=== PATIENT | female | born 1970 | race Hispanic/Latino ===

== ENCOUNTER 2021-06-20 10:59 | Inpatient (IN) | payer MEDICAID, SELFPAY ==
[2021-06-20] MEDS ORDERED: Dexamethasone 10 MG/ML VIAL ONE (12:05)
[2021-06-20] MEDS ORDERED: Albuterol Sulfate 2.5 mg/3 ml Neb ONE (13:29)
[2021-06-20] MEDS ORDERED: methylPREDNISolone Sod Succ/PF 125 MG/2 ML VIAL ONE (14:56)
[2021-06-20 15:38] LABS: SARS-CoV-2 NAA Rapid Test Not Detected (NotDetected)
[2021-06-20 15:39] LABS: Hemoglobin 16.1 g/dL (12.0-15.5); Mean Corpuscular HGB CONC 33.1 g/dL (32.0-36.0); Mean Corpuscular Hemoglobin 31.3 pg (27.0-33.0); Mean Corpuscular Volume 94.6 fl (81.6-98.3); RBC Distribution Width 12.6 % (11.5-14.5); Red Blood Cell (RBC) Count 5.15 10x6/uL (3.90-5.03); White Blood Cell (WBC) Count 7.7 10x3/uL (3.5-10.5)
[2021-06-20 15:46] LABS: ALT (SGPT) 39 U/L (8-55); AST (SGOT) 23 U/L (5-34); Albumin 4.1 g/dL (3.5-5.0); Alkaline Phosphatase 93 U/L (40-110); Anion Gap 15 mmol/L (10-20); BUN (Urea Nitrogen) 7 mg/dL (9.8-20.1); Bilirubin, Total 0.9 mg/dL (0.2-1.2); Calc. Creatinine Clearance 0 mL/min (70-130); Calcium 9.3 mg/dL (7.8-10.44); Carbon Dioxide 25 mmol/L (22-29); Chloride 102 mmol/L (98-107); Globulin 3.7 g/dL (2.4-3.5); Glucose 217 mg/dL (70-105); Potassium 3.7 mmol/L (3.5-5.1); Protein, Total 7.8 g/dL (6.0-8.3); Sodium 138 mmol/L (136-145)
[2021-06-20 15:50] LABS: #Basophils 0.1 10x3/uL (0.0-0.2); #Eosinphils 0.1 10x3/uL (0.0-0.5); #Monocytes 0.1 10x3/uL (0.0-1.1); #Neutrophils 6.4 10x3/uL (1.5-8.4); %Basophils 0.8 % (0.0-2.0); %Eosinophils 1.3 % (0.0-6.0); %Lymphocytes 12.9 % (18.0-47.0); %Monocytes 1.8 % (0.0-10.0); %Neutrophils 82.8 % (40.0-75.0); Mean Platelet Volume 11.4 fl (7.4-10.4); Platelet Count 128 10x3/uL (150-450)
[2021-06-20] MEDS ORDERED: Magnesium 2 GM/50 ML BAG (IN WATER) ONE (16:05)
[2021-06-20] MEDS ORDERED: Acetaminophen 325 MG TAB PO PRN (17:12)
[2021-06-20] MEDS ORDERED: Ondansetron PF 4 MG/2 ML Vial IVP PRN (17:12)
[2021-06-20 20:40] VITALS: BMI 42.6
[2021-06-20] MEDS: guaiFENesin ER 600 MG TAB PO SCH (22:14)
[2021-06-20] MEDS: Montelukast Sodium 10 mg Tablet PO SCH (22:14)
[2021-06-21] MEDS: methylPREDNISolone Sod Succ 40 MG VIAL IVP SCH ×5 (01:32→18:15)
[2021-06-21 05:16] LABS: #Monocytes 0.2 10x3/uL (0.0-1.1); #Neutrophils 10.5 10x3/uL (1.5-8.4); %Basophils 0.2 % (0.0-2.0); %Lymphocytes 7.7 % (18.0-47.0); %Monocytes 1.5 % (0.0-10.0); Hemoglobin 15.3 g/dL (12.0-15.5); Mean Corpuscular HGB CONC 33.3 g/dL (32.0-36.0); Mean Corpuscular Hemoglobin 30.9 pg (27.0-33.0); Mean Corpuscular Volume 92.9 fl (81.6-98.3); Mean Platelet Volume 11.5 fl (7.4-10.4); Platelet Count 149 10x3/uL (150-450); Red Blood Cell (RBC) Count 4.95 10x6/uL (3.90-5.03); White Blood Cell (WBC) Count 11.6 10x3/uL (3.5-10.5)
[2021-06-21 05:32] LABS: Anion Gap 16 mmol/L (10-20); BUN (Urea Nitrogen) 10 mg/dL (9.8-20.1); Calc. Creatinine Clearance 147 mL/min (70-130); Calcium 9.3 mg/dL (7.8-10.44); Carbon Dioxide 21 mmol/L (22-29); Chloride 106 mmol/L (98-107); Glucose 333 mg/dL (70-105); Potassium 4.1 mmol/L (3.5-5.1); Sodium 139 mmol/L (136-145)
[2021-06-21] MEDS ORDERED: Dextrose 50% Abboject 50 ML SYRINGE SLOW IVP PRN (07:36)
[2021-06-21] MEDS ORDERED: Dextrose 5% in Water 1,000 ML IV PRN (07:36)
[2021-06-21] MEDS: Guaifenesin DM 100-10/5 ML UDCUP PO PRN (09:26)
[2021-06-21] MEDS: guaiFENesin ER 600 MG TAB PO SCH ×2 (09:26→22:33)
[2021-06-21] MEDS: Enoxaparin Sodium 30 MG/0.3 ML SYRINGE SC SCH (09:26)
[2021-06-21] MEDS: Pantoprazole 40 MG VIAL IVP SCH (09:26)
[2021-06-21] MEDS: HumaLOG 300 UNITS/3 ML VIAL SC PRN ×3 (11:35→22:32)
[2021-06-21 12:05] LABS: Hemoglobin A1c 8.3 % (4.0-6.0)
[2021-06-21] MEDS: Montelukast Sodium 10 mg Tablet PO SCH (22:33)
[2021-06-22] MEDS: methylPREDNISolone Sod Succ 40 MG VIAL IVP SCH ×4 (01:19→21:06)
[2021-06-22] MEDS: HumaLOG 300 UNITS/3 ML VIAL SC PRN ×4 (06:01→22:13)
[2021-06-22] MEDS ORDERED: Insulin Regular 300 UNITS/3 ML VIAL SC PRN (07:39)
[2021-06-22] MEDS ORDERED: FLU VACC QS2021-22(6MOS UP)/PF 60 MCG/0.5 ML SYRINGE IM ONE (09:00)
[2021-06-22] MEDS: guaiFENesin ER 600 MG TAB PO SCH ×2 (09:30→21:06)
[2021-06-22] MEDS: Enoxaparin Sodium 30 MG/0.3 ML SYRINGE SC SCH (09:30)
[2021-06-22] MEDS: Pantoprazole 40 MG VIAL IVP SCH (09:30)
[2021-06-22] MEDS ORDERED: Lantus 1000 UNITS/10 ML VIAL SC SCH (21:00)
[2021-06-22] MEDS: Montelukast Sodium 10 mg Tablet PO SCH (21:06)
[2021-06-22] MEDS: Guaifenesin DM 100-10/5 ML UDCUP PO PRN (21:07)
[2021-06-23 04:20] LABS: Hemoglobin 14.7 g/dL (12.0-15.5); Mean Corpuscular HGB CONC 33.8 g/dL (32.0-36.0); Mean Corpuscular Hemoglobin 31.3 pg (27.0-33.0); Mean Corpuscular Volume 92.6 fl (81.6-98.3); Mean Platelet Volume 11.5 fl (7.4-10.4); Platelet Count 131 10x3/uL (150-450); RBC Distribution Width 13.2 % (11.5-14.5)
[2021-06-23 04:34] LABS: Anion Gap 12 mmol/L (10-20); BUN (Urea Nitrogen) 19 mg/dL (9.8-20.1); Calc. Creatinine Clearance 151 mL/min (70-130); Calcium 9.2 mg/dL (7.8-10.44); Carbon Dioxide 26 mmol/L (22-29); Chloride 102 mmol/L (98-107); Glucose 345 mg/dL (70-105); Potassium 4.3 mmol/L (3.5-5.1); Sodium 136 mmol/L (136-145)
[2021-06-23] MEDS: HumaLOG 300 UNITS/3 ML VIAL SC PRN (06:16)
[2021-06-23] MEDS: methylPREDNISolone Sod Succ 40 MG VIAL IVP SCH (06:16)
[2021-06-23] MEDS ORDERED: Enoxaparin Sodium 40 MG/0.4 ML SYRINGE SC SCH (09:00)
[2021-06-23] MEDS: guaiFENesin ER 600 MG TAB PO SCH (09:07)
[2021-06-23 12:39] VITALS: BP 130/62; TEMP 98.4
== END 2021-06-23 13:26 | disposition home or self-care (01) | DRG 202 ==
LOC: CSHERS 10:59 → CSHTELE 17:14
PROVIDERS: ADMIT Internal Medicine; ATTEND Internal Medicine
DX: J45.901 Unspecified asthma with (acute) exacerbation (principal); Z68.41 Body mass index [BMI] 40.0-44.9, adult; E66.9 Obesity, unspecified; Z20.822 Contact with and (suspected) exposure to COVID-19; K59.00 Constipation, unspecified; D50.9 Iron deficiency anemia, unspecified; E11.65 Type 2 diabetes mellitus with hyperglycemia; D72.829 Elevated white blood cell count, unspecified; T38.0X5A Adverse effect of glucocorticoids and synthetic analogues, initial encounter; Z90.49 Acquired absence of other specified parts of digestive tract; Z79.899 Other long term (current) drug therapy
CPT/HCPCS: 36415; 36416; 71046; 80048; 80053; 83036; 83880; 84484; 85025; 85027; 93005; 94640; 94760; 96374; 96375; C9113; J1100; J1650; J1815; J2920; J2930; J3475; J7611; J7620; U0002